=== PATIENT | female | born 1980 | race Caucasian/White ===

== ENCOUNTER 2017-12-19 08:18 | Emergency (ER) | payer OTHER ==
[2017-12-19 08:57] VITALS: BP 126/82; PULSE 91; TEMP 98.8; BMI 33.5
--- NOTE | 2017-12-19 09:59 | PDOC ---
History of Present Illness - General Chief Complaint: Vaginal Bleeding Stated Complaint: 4 WEEKS Vaginal Bleeding Time Seen by Provider: 12/19/17 09:50 History Source: Patient Exam Limitations: No Limitations - History of Present Illness Travel History: No Initial Comments: 12/19/17 09:56 pt states LMP 11/15/17 positive home test with vaginal spotting for 4 days no cramping no pain. [id number] Past History - Past Medical History Allergies/Adverse Reactions: Allergies Allergy/AdvReac Type Severity Reaction Status Date / Time No Known Allergies Allergy Verified 12/19/17 08:56 Home Medications: Ambulatory Orders NK [No Known Home Medication] 01/29/14 - Suicide/Smoking/Psychosocial Hx Smoking History: Never smoked Have you smoked in the past 12 months: No Number of Cigarettes Smoked Daily: 0 Information on smoking cessation initiated: No Hx Alcohol Use: No Drug/Substance Use Hx: No *Physical Exam - Vital Signs Last Vital Signs Temp Pulse Resp BP Pulse Ox 98.8 F 91 H 16 126/82 100 12/19/17 08:55 12/19/17 08:55 12/19/17 08:55 12/19/17 08:55 12/19/17 08:55 - Physical Exam General Appearance: Yes: Nourished, Appropriately Dressed HEENT: positive: EOMI, MARIAH Gastrointestinal/Abdominal: positive: Normal Bowel Sounds, Soft. negative: Tender Musculoskeletal: positive: Normal Inspection Extremity: positive: Normal Inspection, Normal Range of Motion Integumentary: positive: Normal Color, Dry, Warm ED Treatment Course - LABORATORY CBC & Chemistry Diagram: 12/19/17 09:55 - RADIOLOGY Radiology Studies Ordered: Category Date Time Status TRANSVAGINAL US PREG [US] Stat Ultrasound 12/19/17 09:55 Ordered Medical Decision Making - Medical Decision Making 12/19/17 09:57 cc: vaginal spotting with LMP 11/15/17 will check labs 12/19/17 11:[address]Melissa Koo (hospice bereavement coordinator) funeral professional labs and US report discussed would like to see patient on sunday in the office for 48hrs repeat blood work 12/19/17 11:59 dc inst and plan verbally discussed with the patient, all questions asked and answered at discharge. 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
[2017-12-19 10:16] LABS: HEMATOCRIT 44.2 % (32.4-45.2); HEMOGLOBIN 14.4 GM/dL (10.7-15.3); MCH 28.8 pg (25.7-33.7); MCHC 32.6 g/dl (32.0-36.0); MEAN CELL VOLUME 88.4 fl (80-96); MEAN PLT VOLUME 8.7 fl (7.5-11.1); PLATELET COUNT 282 K/MM3 (134-434); RDW 13.4 % (11.6-15.6); WHITE BLOOD COUNT 5.4 K/mm3 (4.0-10.0)
== END 2017-12-19 12:11 | disposition home or self-care (01) ==
LOC: JERFT 08:18 → JER 08:18 → JERFT 12:11
DX: O26.891 Other specified pregnancy related conditions, first trimester (principal); Z3A.01 Less than 8 weeks gestation of pregnancy; O20.0 Threatened abortion
CPT/HCPCS: 36415; 76817-TC; 84702; 84703; 85027; 86850; 86900; 86901; 99281-25